=== PATIENT | male | born 1960 | race American Indian/Alaskan Native ===

== ENCOUNTER 2019-03-05 08:00 | Observation (INO) | payer BC ==
[2019-03-03 09:31] LABS: Basophils % (Auto) 0.3 % (0.0-1.8); Eosinophils % (Auto) 1.1 % (0.0-4.3); Hematocrit 41.3 % (35.5-45.6); Hemoglobin 14.5 gm/dl (11.8-15.2); Lymphocytes % (Auto) 27.4 % (13.4-35.0); Mean Corpuscular HGB Conc 35 % (32-34); Mean Corpuscular Volume 94 fl (84-94); Monocytes # (Auto) 0.3 K/mm3 (0.0-0.8); Monocytes % (Auto) 9.2 % (0.0-7.3); Platelet Count 234 K/mm3 (140-440); Red Blood Count 4.41 M/mm3 (3.65-5.03); Red Cell Distribution Width 13.9 % (13.2-15.2)
[2019-03-03 09:46] LABS: Alanine Aminotransferase 12 units/L (7-56); Albumin 4.1 g/dL (3.9-5); BUN/Creatinine Ratio 19; Blood Urea Nitrogen 13 mg/dL (9-20); Calcium 9.2 mg/dL (8.4-10.2); Hemolysis Index 24
--- NOTE | 2019-03-03 09:46 | Anesthesia Consultation ---
Anesthesia Consult and Med Hx Date of service: 03/03/19 - Airway Anesthetic Teeth Evaluation: Partials (upper) ROM Head & Neck: Adequate Mental/Hyoid Distance: Adequate Mallampati Class: Class III Intubation Access Assessment: Possibly Difficult - Pulmonary Exam CTA: Yes - Cardiac Exam Cardiac Exam: RRR - Pre-Operative Health Status ASA Pre-Surgery Classification: ASA2 Proposed Anesthetic Plan: General - Pulmonary Hx Smoking: Yes (>30yrs ago) Hx Respiratory Symptoms: No Hx Sleep Apnea: No (NATASHA PRE SCREEN HIGH RISK.) - Cardiovascular System Hx Hypertension: No (HLD) Hx Heart Attack/AMI: No Hx Percutaneous Transluminal Coronary Angioplasty (PTCA): No Hx Cardia Arrhythmia: No - Central Nervous System Hx Seizures: No CVA: No - Gastrointestinal Hx Gastroesophageal Reflux Disease: No - Endocrine Hx Renal Disease: No (urinary retention) Hx Liver Disease: No Hx Insulin Dependent Diabetes: No Hx Non-Insulin Dependent Diabetes: No Hx Thyroid Disease: No - Hematic Hx Anemia: No - Other Systems Hx Obesity: Yes - Additional Comments Anesthesia Medical History Comments: No prior GA. No FHx anesthetic complications.
[2019-03-03 10:06] LABS: INR 0.99 (0.87-1.13)
[2019-03-03 10:08] LABS: Partial Thromboplastin Time 27.9 Sec. (24.2-36.6)
[~2019-03-05 08:00] MED LIST: ANCEF/STERILE WATER 2 GM/20 ML IV NR; LACTATED RINGERS 1,000 ML IV SCH; NACL 0.9% IR ONE; NACL BACTERIOSTATIC INFILTRATI ONE; NEURONTIN PO NR; WATER FOR IRRIG STERILE IR ONE
--- NOTE | 2019-03-05 08:31 | Anesthesia Day of Surgery ---
Anesthesia Day of Surgery - Day of Surgery Patient Examined: Yes Patient H&P Reviewed: Yes Patient is NPO: Yes
[2019-03-05] MEDS: VERSED IV NR ×2 (08:55→09:52)
[2019-03-05] MEDS ORDERED: SUBLIMAZE IV SCH (09:10)
[2019-03-05] MEDS ORDERED: DIPRIVAN 10 MG/ML IV ONE (11:03)
[2019-03-05] MEDS ORDERED: DILAUDID ONE (11:03)
[2019-03-05] MEDS ORDERED: XYLOCAINE MPF 2% ONE (11:04)
[2019-03-05] MEDS ORDERED: NACL 0.9% IR ONE (11:41)
[2019-03-05] MEDS ORDERED: SUBLIMAZE ONE (11:51)
[2019-03-05] MEDS ORDERED: WATER FOR IRRIG STERILE IR ONE (12:00)
--- NOTE | 2019-03-05 12:21 | Short Stay Summary ---
Short Stay Documentation Date of service: 03/05/19 - History H&P: obtained from office - Allergies and Medications Current Medications: Allergies No Known Allergies Allergy (Verified 03/02/19 16:47) Home Medications Medication Instructions Recorded Confirmed Last Taken Type Tamsulosin [Flomax] 0.4 mg PO QDAY 03/02/19 03/05/19 03/04/19 History Active Medications Cefazolin Sodium (Ancef/Sterile Water 2 Gm/20 Ml) 2 gm IV PREOP NR Stop: 03/05/19 23:59 Fentanyl (Sublimaze) 50 mcg IV ONCE VIKAS Stop: 03/05/19 23:59 Last Admin: 03/05/19 09:21 Dose: 50 mcg Documented by: Gabapentin (Neurontin) 300 mg PO PREOP NR Stop: 03/05/19 23:59 Last Admin: 03/05/19 08:35 Dose: 300 mg Documented by: Lactated Ringer's (Lactated Ringers) 1,000 mls @ 100 mls/hr IV DIRECT VIKAS Last Admin: 03/05/19 08:50 Dose: 100 mls/hr Documented by: Midazolam HCl (Versed) 2 mg IV PREOP NR Stop: 03/05/19 23:59 Last Admin: 03/05/19 09:52 Dose: 2 mg Documented by: - Brief post op/procedure progress note Date of procedure: 03/05/19 Pre-op diagnosis: bph, asymetrical prostate, retention Post-op diagnosis: same Procedure: cystop, TURP, bx prostate, cystogram Anesthesia: GETA Surgeon: MIKE ALEXANDRE Estimated blood loss: 50-100ml Pathology: list (prostate chips, transrectal cores) Specimen disposition: to lab Condition: stable - Hospital course Hospital course: cipro & norco on chart hayes pink tinged urine---no clots home wih hayes - Disposition Condition at discharge: Stable Short Stay Discharge Plan Follow up with: RAKESH GORDON MD [Primary Care Provider] - 7 Days
[2019-03-05] MEDS ORDERED: NORCO 5/325 PO PRN (12:22)
[2019-03-05] MEDS ORDERED: AMBIEN PO PRN (12:22)
[2019-03-05] MEDS ORDERED: ZOFRAN IV PRN (12:22)
[2019-03-05] MEDS ORDERED: NARCAN 0.4 MG/1 ML IV PRN (12:22)
[2019-03-05] MEDS ORDERED: ZOFRAN ONE (12:37)
[2019-03-05] MEDS ORDERED: LACTATED RINGERS 1,000 ML IV SCH (13:00)
[2019-03-05] MEDS: DILAUDID IV PRN ×2 (13:04→13:17)
[2019-03-05] MEDS ORDERED: LACTATED RINGERS 1,000 ML ONE (13:08)
--- NOTE | 2019-03-05 13:34 | Fluoroscopy Report ---
FLUOROSCOPY CYSTOGRAM STATIC HISTORY: Enlarged prostate, urinary retention FINDINGS: Fluoroscopy was provided by radiology during retrograde urography by the urologist. 6 secon ds of fluoroscopy time was utilized. 3 fluoroscopic images are presented. The images demonstrate a pa rtially distended bladder with IV contrast. There appears to be mild trabeculation of the bladder wal l but no obvious mass or filling defect. Retrograde pyelograms could not be performed because the rosetta fices could not be visualized. TURP was performed. Please correlate with the procedural report by uro logy as needed. IMPRESSION: Mild trabeculation of the bladder wall. No filling defect or mass is identified. Signer Name: Anjel Babcock Jr, MD Signed: 03/05/2019 1:30 PM Workstation Name: [id number]
[2019-03-05] MEDS: NACL 0.9% IR SCH ×6 (15:03→23:14)
[2019-03-05] MEDS: ANCEF/NS 1 GM/50 ML 1 GM/50 ML BAG IV SCH ×2 (15:47→23:50)
--- NOTE | 2019-03-05 19:43 | Post Anesthesia Evaluation ---
- Post Anesthesia Evaluation Patient Participated: Yes Airway Patent: Yes Stable Respiratory Function: Yes Nausea/Vomiting: No Temp > 96.8F: Yes Pain Manageable: Yes Adequeate Hydration: Yes Anesthesia Complications: No Block Receding Appropriately: Not Applicable Patient on Ventilator: No
[2019-03-05] MEDS: MORPHINE IV PRN (21:25)
--- NOTE | 2019-03-05 21:43 | Operative Report ---
PREOPERATIVE DIAGNOSES: Benign prostatic hypertrophy, urinary retention. POSTOPERATIVE DIAGNOSES: Benign prostatic hypertrophy, urinary retention, prostatic nodule and bladder diverticulum. PROCEDURE PERFORMED: Cystoscopy, transurethral resection of the prostate, cystogram, digital transrectal prostate biopsy. SURGEON: Chaitanya Moreno MD ANESTHESIA: General. ESTIMATED BLOOD LOSS: Minimal. FLUIDS: Crystalloid. COMPLICATIONS: No complications. INDICATIONS: This patient is a 58-year-old gentleman seen in the office with BPH symptoms, has been on alpha blockers, recently went into urinary retention. Discussed options including TURP and minimally invasive procedures such as UroLift and Rezum. Caldwell catheter fill flow, he passed. However, he ultimately developed urinary retention again and decided he wanted to proceed with TURP. Risks, benefits, and complications were explained to the patient and his . They agreed to proceed. Urodynamic testing 06/2017 revealed a peak flow of 4 mL a second. Bladder capacity of 200 mL. He got a postvoid residual of 20 mL. DESCRIPTION OF PROCEDURE: The patient was taken to the operative suite, placed in a supine position. After adequate general anesthesia, placed in a dorsal lithotomy position, prepped and draped in a sterile fashion. Pancystourethroscopy was performed with 22-Estonian Storz cystoscope. No urethral abnormalities. Prostate had significant median lobe obstruction, mild lateral lobe obstruction. Ureteral orifices could not be appreciated due to diffuse trabeculation and large median lobe. He was also found to have a close mouth diverticulum on the right posterior wall. Next, using the large saline resectoscope with the settings on 200 cutting, 120 coag, transurethral resection of the prostate was performed in a systematic fashion, taking down the median lobe first right and left lateral lobes. The chips were evacuated out with the Seth evacuator, still could not visualize the ureteral orifices. The verumontanum was uninjured. Chips were evacuated out. A 24-Estonian 3-way catheter was placed. Cystogram was negative. Rectal exam had some asymmetry of the prostate, prompting a digital guided transrectal biopsy on the right and left side. He was extubated and taken to recovery room. He will be observed overnight and go home on [place] and [place]. JOB# [id number] [facility]
[2019-03-06] MEDS: MORPHINE IV PRN (01:46)
[2019-03-06] MEDS: NACL 0.9% IR SCH ×5 (04:03→10:13)
[2019-03-06 04:45] VITALS: BP 92/55
[2019-03-06 05:09] LABS: Basophils % (Auto) 0.3 % (0.0-1.8); Eosinophils # (Auto) 0.1 K/mm3 (0.0-0.4); Eosinophils % (Auto) 1.1 % (0.0-4.3); Hematocrit 38.7 % (35.5-45.6); Hemoglobin 13.2 gm/dl (11.8-15.2); Lymphocytes % (Auto) 15.5 % (13.4-35.0); Mean Corpuscular HGB Conc 34 % (32-34); Mean Corpuscular Volume 96 fl (84-94); Monocytes # (Auto) 0.7 K/mm3 (0.0-0.8); Monocytes % (Auto) 10.9 % (0.0-7.3); Platelet Count 221 K/mm3 (140-440); Red Blood Count 4.05 M/mm3 (3.65-5.03)
[2019-03-06 05:20] LABS: BUN/Creatinine Ratio 10; Blood Urea Nitrogen 10 mg/dL (9-20); Calcium 8.9 mg/dL (8.4-10.2); Hemolysis Index 3
== END 2019-03-06 13:22 | disposition home or self-care (01) ==
LOC: OR 08:00 → 3B-SURG 12:22
PROVIDERS: ADMIT Urology; ATTEND Urology
DX: N40.1 Benign prostatic hyperplasia with lower urinary tract symptoms (principal); R33.8 Other retention of urine
CPT/HCPCS: 36415; 52630; 74430; 80048; 80053; 85025; 85610; 85730; 86850; 86900; 86901; 88305; 88342; 96365; 96366; 96375; 96376; A4217; G0378; J0690; J1170; J2250; J2270; J2405; J2704; J3010; J7120; Q9967